=== PATIENT | male | born 1985 | race Caucasian/White ===

== ENCOUNTER 2023-04-07 01:02 | Emergency (ER) | payer SELFPAY ==
[2023-04-07 01:17] LABS: BASOPHILS ABSOLUTE AUTO 0.07 K/uL (0.00-0.20); EOSINOPHILS ABSOLUTE AUTO 0.03 K/uL (0.00-0.50); EOSINOPHILS PERCENT AUTO 0.4 % (0.0-5.0); HEMATOCRIT 48.1 % (39.0-49.0); HEMOGLOBIN 16.7 g/dL (13.1-16.8); LYMPHOCYTES PERCENT AUTO 47.3 % (10.0-50.0); MEAN CORPUSCULAR HEMOGLOBIN 33.1 pg (28.2-33.3); MEAN CORPUSCULAR HGB CONC 34.7 g/dL (31.7-36.0); MEAN CORPUSCULAR VOLUME 95.4 fL (84.0-98.0); MONOCYTES ABSOLUTE AUTO 0.62 K/uL (0.00-1.00); MONOCYTES PERCENT AUTO 8.9 % (2.0-14.0); NEUTROPHILS ABSOLUTE AUTO 2.96 K/uL (1.40-7.00); NEUTROPHILS PERCENT AUTO 42.4 % (45.0-80.0); PLATELET COUNT,PLT 164 K/uL (150-350); RED BLOOD CELL COUNT 5.04 M/uL (4.33-5.41); RED CELL DISTRIBUTION WIDTH 14.6 % (11.2-14.1)
[2023-04-07 01:30] LABS: ALBUMIN 4.5 g/dL (3.4-5.0); ALKALINE PHOSPHATASE 72 IU/L (46-116); ANION GAP 16.4 meq/L (7-15); ASPARTATE AMNIOTRANSFERASE,AST 84 U/L (15-37); BILIRUBIN TOTAL 0.7 mg/dL (0.2-1.0); BLOOD UREA NITROGEN,BUN 13 mg/dL (7-18); CALCIUM 8.8 mg/dL (8.5-10.1); CARBON DIOXIDE,CO2 25.6 mmol/L (21.0-32.0); CHLORIDE,CL 99 mmol/L (98-107); CREATININE 0.92 mg/dL (0.51-1.17); EST CRCL DRUG DOSING (CG) 117.09 mL/min; GLUCOSE RANDOM 113 mg/dL (70-99); POTASSIUM,K 3.7 mmol/L (3.5-5.1); PROTEIN TOTAL,TP 8.6 g/dL (6.4-8.2); SODIUM,NA 141 mmol/L (136-145)
[2023-04-07 01:33] LABS: ESTIMATED GFR 110 mL/min (>=60)
== END 2023-04-07 02:08 | disposition home or self-care (01) ==
LOC: LL.ED 01:02
DX: F10.120 Alcohol abuse with intoxication, uncomplicated (principal); Y90.8 Blood alcohol level of 240 mg/100 ml or more
CPT/HCPCS: 36415; 80053; 80307; 85025; 99284

== ENCOUNTER 2023-04-07 23:02 | Emergency (ER) | payer SELFPAY ==
[2023-04-07] MEDS: Ondansetron 4 MG/2 ML SDV IVPUSH PRN (23:58)
[2023-04-08 00:08] LABS: BASOPHILS ABSOLUTE AUTO 0.06 K/uL (0.00-0.20); EOSINOPHILS ABSOLUTE AUTO 0.01 K/uL (0.00-0.50); EOSINOPHILS PERCENT AUTO 0.2 % (0.0-5.0); HEMATOCRIT 44.3 % (39.0-49.0); HEMOGLOBIN 15.3 g/dL (13.1-16.8); LYMPHOCYTES ABSOLUTE AUTO 0.93 K/uL (0.50-3.50); LYMPHOCYTES PERCENT AUTO 16.1 % (10.0-50.0); MEAN CORPUSCULAR HEMOGLOBIN 33.4 pg (28.2-33.3); MEAN CORPUSCULAR HGB CONC 34.5 g/dL (31.7-36.0); MEAN CORPUSCULAR VOLUME 96.7 fL (84.0-98.0); MONOCYTES ABSOLUTE AUTO 0.45 K/uL (0.00-1.00); MONOCYTES PERCENT AUTO 7.8 % (2.0-14.0); NEUTROPHILS ABSOLUTE AUTO 4.33 K/uL (1.40-7.00); NEUTROPHILS PERCENT AUTO 74.9 % (45.0-80.0); PLATELET COUNT,PLT 121 K/uL (150-350); RED BLOOD CELL COUNT 4.58 M/uL (4.33-5.41); RED CELL DISTRIBUTION WIDTH 14.4 % (11.2-14.1); WHITE BLOOD CELL COUNT,WBC 5.8 K/uL (4.0-10.2)
[2023-04-08 00:22] LABS: ALBUMIN 4.3 g/dL (3.4-5.0); ANION GAP 19.7 meq/L (7-15); BILIRUBIN TOTAL 1.1 mg/dL (0.2-1.0); CALCIUM 9.4 mg/dL (8.5-10.1); CARBON DIOXIDE,CO2 24.9 mmol/L (21.0-32.0); CREATININE 0.86 mg/dL (0.51-1.17); EST CRCL DRUG DOSING (CG) 125.26 mL/min; ETHANOL BLOOD MEDICAL 0.112 g/dL (0.000-0.080); POTASSIUM,K 3.6 mmol/L (3.5-5.1); PROTEIN TOTAL,TP 8.1 g/dL (6.4-8.2)
[2023-04-08] MEDS: Take Home: Ondansetron 4 MG Tab.DIS, 5 Tab Pack PO ONE (01:59)
== END 2023-04-08 02:00 | disposition home or self-care (01) ==
LOC: LL.ED 23:02
DX: F10.29 Alcohol dependence with unspecified alcohol-induced disorder (principal); F41.9 Anxiety disorder, unspecified; Y90.5 Blood alcohol level of 100-119 mg/100 ml
CPT/HCPCS: 36415; 80053; 80307; 85025; 99284; J2405; Q0162